=== PATIENT | male | born 1965 | race Caucasian/White ===

== ENCOUNTER 2020-08-27 12:35 | Inpatient (IN) | payer OTHER ==
[~2020-08-27] VITALS: Ht 170.2 cm; Wt 81.6 kg
[~2020-08-27 12:35] MED LIST: NORCO 5-325 TA1 EACH PO
[2020-08-27 13:54] LABS: BASOPHIL 0.5 % (0-2); EOSINOPHIL 7.1 % (0-5); HCT 44.7 % (42.0-52.0); HGB 14.8 g/dl (13.2-18.0); LYMPHOCYTE 21.3 % (15-48); MCH 28.9 pg (25.0-31.0); MCHC 33.1 g/dL (32.0-36.0); MCV 87.3 fL (78.0-100.0); MONOCYTE 8.5 % (0-12); MPV 9.5 fL (6.0-9.5); NEUTROPHIL 62.3 % (41-80); NRBC 0; PLT 247 K/uL (150-400); RBC 5.12 M/uL (4.70-6.00); RDW 13.5 % (11.5-14.0); WBC 10.1 K/uL (4.0-10.5)
[2020-08-27 13:59] LABS: INR 1.05 (0.9-1.2); PTT 30.1 SECONDS (22.2-34.7)
[2020-08-27 14:00] LABS: D-DIMER 0.35 ug/mLFEU (0.00-0.41)
[2020-08-27 14:20] LABS: BILIRUBIN - TOTAL 0.5 mg/dL (0.2-1.0); BUN/CREAT RATIO (CALC) 9.3 RATIO; CREATININE 0.86 mg/dL (0.67-1.17); GLOBULIN (CALCULATION) 4.1 g/dL; MAGNESIUM 1.9 mg/dL (1.8-2.4); POTASSIUM 3.2 mmol/L (3.5-5.1); TOTAL PROTEIN 8.1 g/dL (6.4-8.2)
[2020-08-27 14:55] LABS: PRO-BNP 26 pg/mL (<125)
[2020-08-27 15:02] LABS: LACTIC ACID 1.6 mmol/L (0.4-1.9)
[2020-08-27] MEDS ORDERED: VALSARTAN-HCTZ1 EAC3 PO (17:58)
[2020-08-28 06:07] LABS: BASOPHIL 0.2 % (0-2); EOSINOPHIL 0 % (0-5); HCT 42.5 % (42.0-52.0); LYMPHOCYTE 7.8 % (15-48); MCH 28.7 pg (25.0-31.0); MCHC 32.9 g/dL (32.0-36.0); MCV 87.3 fL (78.0-100.0); MONOCYTE 3.4 % (0-12); MPV 9.4 fL (6.0-9.5); NEUTROPHIL 87.8 % (41-80); NRBC 0; PLT 233 K/uL (150-400); RBC 4.87 M/uL (4.70-6.00); RDW 13.5 % (11.5-14.0); WBC 11.9 K/uL (4.0-10.5)
[2020-08-28 06:23] LABS: ALBUMIN 3.5 g/dL (3.4-5.0); BILIRUBIN - TOTAL 0.2 mg/dL (0.2-1.0); BUN/CREAT RATIO (CALC) 10.9 RATIO; CREATININE 1.01 mg/dL (0.67-1.17); GLOBULIN (CALCULATION) 3.8 g/dL; POTASSIUM 3.7 mmol/L (3.5-5.1); TOTAL PROTEIN 7.3 g/dL (6.4-8.2)
[2020-08-29 05:36] LABS: BASOPHIL 0.2 % (0-2); EOSINOPHIL 0.2 % (0-5); HCT 42.1 % (42.0-52.0); HGB 13.7 g/dl (13.2-18.0); LYMPHOCYTE 15.2 % (15-48); MCHC 32.5 g/dL (32.0-36.0); MCV 89.2 fL (78.0-100.0); MONOCYTE 6.6 % (0-12); MPV 9.3 fL (6.0-9.5); NEUTROPHIL 77.2 % (41-80); NRBC 0; PLT 259 K/uL (150-400); RBC 4.72 M/uL (4.70-6.00); RDW 13.8 % (11.5-14.0); WBC 16.5 K/uL (4.0-10.5)
[2020-08-29 07:18] LABS: CREATININE 0.84 mg/dL (0.67-1.17); POTASSIUM 3.4 mmol/L (3.5-5.1)
[2020-08-29] MEDS ORDERED: PREDNISONE 20MG20 MG PO (10:16)
[2020-08-29] MEDS ORDERED: CEFDINIR300 MG PO (10:16)
[2020-08-29] MEDS ORDERED: VENTOLIN HFA IN18 GM INH (10:16)
[2020-08-29] MEDS ORDERED: AZITHROMYCIN250 MG PO (10:16)
== END 2020-08-29 11:05 | disposition home or self-care (01) | DRG 194 ==
LOC: FER 12:35 → FMS 16:19
PROVIDERS: Emergency Medicine; Nurse Practitioner; ADMIT Internal Medicine
DX: J18.9 Pneumonia, unspecified organism (principal); J44.0 Chronic obstructive pulmonary disease with (acute) lower respiratory infection; J44.1 Chronic obstructive pulmonary disease with (acute) exacerbation; Z20.822 Contact with and (suspected) exposure to COVID-19; Z88.0 Allergy status to penicillin; F17.210 Nicotine dependence, cigarettes, uncomplicated; I10 Essential (primary) hypertension
CPT/HCPCS: 36415; 71260; 80048; 80053; 83036; 83605; 83615; 83735; 83880; 84145; 84484; 85025; 85379; 85610; 85730; 87040; 87070; 87205; 93005; 94010; 94640; J0456; J0696; J1650; J2930; J7050; J7512; Q9967; U0002